=== PATIENT | female | born 1985 | race Hispanic/Latino ===

== ENCOUNTER 2020-11-02 09:30 | Emergency (ER) | payer OTHER, BC ==
[~2020-11-02] VITALS: Ht 177.8 cm; Wt 89.8 kg
== END 2020-11-02 10:19 | disposition home or self-care (01) ==
LOC: ED 09:30
DX: S56.911A Strain of unspecified muscles, fascia and tendons at forearm level, right arm, initial encounter (principal); X50.9XXA Other and unspecified overexertion or strenuous movements or postures, initial encounter; Y99.0 Civilian activity done for income or pay
CPT/HCPCS: 99283